=== PATIENT | female | born 1950 | race Two or more races ===

== ENCOUNTER 2024-03-26 10:45 | Inpatient (IN) | payer OTHER, MEDICAID ==
[~2024-03-26] VITALS: Ht 157.5 cm; Wt 94.5 kg
--- NOTE | 2024-03-26 10:55 | ED.PDOC ---
History of Present Illness HPI Comments 73 year old female VINH presents to the ED with chief complaint of generalized weakness. Patient reports that she has been experiencing generalized weakness for the past 2-3 days, feeling like her legs are giving out. Patient relays that she is normally able to walk on her own, but since symptom onset has felt like she is always going to fall. Patient denies any numbness, dizziness, headache, chest pain, or SOB. Time Seen by MD: 10:52 Reviewed Notes: Nurses Notes, Medications, Allergies Allergies: Coded Allergies: NO KNOWN ALLERGIES (Unverified , 03/26/24) Information Source: Patient, Emergency Med Personnel Mode of Arrival: EMS Severity: Moderate Timing: Days Duration: Since onset Prehospital treatment: None Past Medical History PAST MEDICAL HISTORY: DM, HTN Surgical History: Cholecystectomy Surgical History (Other): Rt leg surgery TECHNICIAN PREVENTATIVE MEDICINE History: Denies all TECHNICIAN PREVENTATIVE MEDICINE Hx Family History Family History: Reviewed,noncontributory to illness Social History Smoker: Non-Smoker Alcohol: Denies ETOH Use Drugs: Denies Drug Use Lives In: Home Constitutional: reports: weakness; denies: chills, diaphoresis, fatigue, fever, malaise, sweats, others EENTM: denies: blurred vision, double vision, ear bleeding, ear discharge, ear drainage, ear pain, ear ringing, eye pain, eye redness, hearing loss, mouth pain, mouth swelling, nasal discharge, nose bleeding, nose congestion, nose pain, photophobia, tearing, throat pain, throat swelling, voice changes, others Respiratory: denies: cough, hemoptysis, orthopnea, SOB at rest, shortness of breath, SOB with excertion, stridor, wheezing, others Cardiovascular: denies: chest pain, dizzy spells, diaphoresis, Dyspnea on exertion, edema, irregular heart beat, left arm pain, lightheadedness, palpitations, PND, syncope, others Gastrointestinal: denies: abdomen distended, abdominal pain, blood streaked bowels, constipated, diarrhea, dysphagia, difficulty swallowing, hematemesis, melena, nausea, poor appetite, poor fluid intake, rectal bleeding, rectal pain, vomiting, others Genitourinary: denies: abnormal vagina bleeding, burning, dyspareunia, dysuria, flank pain, frequency, hematuria, incontinence, pain, , vagina discharge, urgency, others Neurological: denies: dizziness, fainting, headache, left sided numbness, left sided weakness, numbness, paresthesia, pre-existing deficit, right sided numbness, right sided weakness, seizure, speech problems, tingling, tremors, weakness, others Musculoskeletal: denies: back pain, gout, joint pain, joint swelling, muscle pain, muscle stiffness, neck pain, others Integumetry: denies: bruises, change in color, change in hair/nails, dryness, laceration, lesions, lumps, rash, wounds, others Allergic/Immunocompromised: denies: Difficulty Healing, Frequent Infections, Hives, Itching, others Hematologic/Lymphatic: denies: anemia, blood clots, easy bleeding, easy bruising, swollen glands, others Endocrine: denies: excessive hunger, excessive sweating, excessive thirst, excessive urination, flushing, intolerance to cold, intolerance to heat, unexplained weight gain, unexplained weight loss, others Psychiatric: denies: anxiety, bipolar disorder, depression, hopeless, panic disorder, schizophrenia, sleepless, suicidal, others All Other Systems: Reviewed and Negative Physical Exam General Appearance: Moderate Distress, Normal HEENT: Normal ENT Inspection, PERRL/EOMI Neck: Full Range of Motion, Non-Tender, Normal, Normal Inspection Respiratory: Chest Non-Tender, Lungs Clear, No Accessory Muscle Use, No Respiratory Distress, Normal Breath Sounds Cardiovascular: No Edema, No JVD, No Murmur, No Gallop, Normal Peripheral Pulses, Regular Rate/Rhythm Breast Exam: Deferred Gastrointestinal: No Organomegaly, Non Tender, No Pulsatile Mass, Normal Bowel Sounds, Soft Genitalia: Deferred Pelvic: Deferred Rectal: Deferred Extremities: No calf tenderness, Normal capillary refill, Normal inspection, Normal range of motion, Non-tender, No pedal edema Musculoskeletal : Apperance: Normal Neurologic: Alert, quality control assistant II-XII nml as Tested, No Motor Deficits, Normal Affect, Normal Mood, No Sensory Deficits Cerebellar Function: NOT DONE Reflexes: NOT DONE Skin: Dry, Normal Color, Warm Peripheral Pulses: 3+ Radial (R), 3+ Radial (L) Lymphatic: No Adenopathy Was a procedure done? Was a procedure done?: No Differential Dx Considerations may include: Autonomic disorder Electrolyte imbalance X-Ray, Labs, Meds, VS Vital Signs Date Time Temp Pulse Resp B/P (MAP) Pulse Ox O2 Delivery O2 Flow Rate FiO2 03/26/24 10:59 98.3 80 16 146/68 (94) 99 03/26/24 10:59 98.3 80 16 144/68 (93) 99 98.3 03/26/24 10:54 65 Lab Test 03/26/24 13:11 03/26/24 11:50 Range/Units Troponin I High Sensitivity < 3 L < 3 L </=34 ng/L White Blood Count 11.3 H 4.4-10.8 10^3/uL Red Blood Count 5.62 H 4.0-5.20 10^6/uL Hemoglobin 16.1 12.2-16.2 g/dL Hematocrit 48.9 H 36.0-46.0 % Mean Corpuscular Volume 87.0 80.0-100.0 fL Mean Corpuscular Hemoglobin 28.6 28.0-32.0 pg Mean Corpuscular Hemoglobin Concent 32.9 32.0-36.0 g/dL Red Cell Distribution Width 14.8 H 11.8-14.3 % Platelet Count 211 140-450 10^3/uL Mean Platelet Volume 10.4 6.9-10.8 fL Neutrophils (%) (Auto) 59.2 37.0-80.0 % Lymphocytes (%) (Auto) 32.6 10.0-50.0 % Monocytes (%) (Auto) 6.8 0.0-12.0 % Eosinophils (%) (Auto) 1.0 0.0-7.0 % Basophils (%) (Auto) 0.4 0.0-2.0 % Neutrophils # (Auto) 6.7 1.6-8.6 10 ^3/uL Lymphocytes # (Auto) 3.7 0.4-5.4 10 ^3/uL Monocytes # (Auto) 0.8 0-1.3 10 ^3/uL Eosinophils # (Auto) 0.1 0-0.8 10 ^3/uL Basophils # (Auto) 0 0-0.2 10 ^3/uL Nucleated Red Blood Cells 0.1 % Sodium Level 141 136-145 mmol/L Potassium Level 4.0 3.5-5.1 mmol/L Chloride Level 105 98-107 mmol/L Carbon Dioxide Level 32 H 20-31 mmol/L Anion Gap 4 L 5-15 Blood Urea Nitrogen 21 9-23 mg/dL Creatinine 1.08 H 0.550-1.02 mg/dL Glomerular Filtration Rate Calc 54 >90 mL/min BUN/Creatinine Ratio 19.4 10.0-20.0 Serum Glucose 114 H 74-106 mg/dL Calcium Level 9.8 8.7-10.4 mg/dL Patient alert. Complaining of dizziness. Able to ambulate. She feels like she will be falling. Blood pressure slightly elevated. Reviewed her previous visit. Explained to the patient about treatment plan. Continue cardiac monitoring. Time of 1ST Reevaluation: 11:52 Reevaluation 1ST: Unchanged Patient Education/Counseling: Diagnosis, Treatment Family Education/Counseling: No Family Present Departure 1 Departure Time of Disposition: 11:08 Impression: Primary Impression: Autonomic disorder Additional Impression: Hypertensive urgency Disposition: ADMITTED INPATIENT Admit to: Med Surg Condition: Guarded Critical Care Note Critical Care Time?: Yes (45 min-critical care time only) Stability Stability form required: No Heart Score Heart Score: Heart Score Response (Comments) Value History N/A 0 EKG N/A 0 Age N/A 0 Risk Factors N/A 0 Troponin N/A 0 Total 0 I personally scribed for DAVID NEIL MD ([email or web address]) on 03/26/24 at 10:55. Electronically submitted by Pavan Shaffer ([email or web address]). DAVID NEIL MD Mar 26, 2024 10:55
[2024-03-26 12:04] LABS: Basophils # (auto) 0 10 ^3/uL (0-0.2); Basophils % (auto) 0.4 % (0.0-2.0); Eosinophils # (auto) 0.1 10 ^3/uL (0-0.8); Hematocrit 48.9 % (36.0-46.0); Hemoglobin 16.1 g/dL (12.2-16.2); Lymphocytes # (auto) 3.7 10 ^3/uL (0.4-5.4); Lymphocytes % (auto) 32.6 % (10.0-50.0); Mean Corpuscular Hemoglobin 28.6 pg (28.0-32.0); Mean Corpuscular Hgb Conc. 32.9 g/dL (32.0-36.0); Monocytes # (auto) 0.8 10 ^3/uL (0-1.3); Monocytes % (auto) 6.8 % (0.0-12.0); Neutrophils # (auto) 6.7 10 ^3/uL (1.6-8.6); Neutrophils % (auto) 59.2 % (37.0-80.0); Nucleated Red Blood Cells % 0.1 %; Platelet Count (auto) 211 10^3/uL (140-450); Red Blood Cells 5.62 10^6/uL (4.0-5.20); Red Cell Distribution Width 14.8 % (11.8-14.3); White Blood Cell 11.3 10^3/uL (4.4-10.8)
[2024-03-26 12:18] LABS: Chloride 105 mmol/L (98-107); Sodium 141 mmol/L (136-145)
[2024-03-26 12:19] LABS: Anion Gap 4 (5-15); Carbon Dioxide 32 mmol/L (20-31)
[2024-03-26 12:20] LABS: Calcium 9.8 mg/dL (8.7-10.4)
[2024-03-26 12:24] LABS: BUN/Creatinine Ratio 19.4 (10.0-20.0); Blood Urea Nitrogen 21 mg/dL (9-23); Glucose 114 mg/dL (74-106)
--- NOTE | 2024-03-26 15:26 | DVH ---
CLINICAL INFORMATION: 73 years old, Female; transient ischemic attack. TECHNIQUE: Axial imaging was obtained through the brain without contrast. Coronal and sagittal refor matted images were obtained, reviewed, and stored. Images were reviewed in brain and bone windows. A ll CT scans at this medical facility are performed using dose modulation techniques as appropriate to a performed exam including the following: Automated exposure control was utilized; adjustment of the MA and/or KV according to patient size; and use of iterative reconstruction technique. CTDIvol = 55.69 mGy DLP = 984.82 mGy-cm COMPARISON: None FINDINGS: There is no acute intracranial hemorrhage or extraaxial fluid collection. No mass effect o r midline shift. Scattered areas of hypoattenuation are seen in the periventricular and subcortical w cecil matter, which are nonspecific but most likely sequelae of small vessel ischemic disease.The vent ricles and sulci are within normal limits in size for age. Basal cisterns are patent. The calvari um is unremarkable. Paranasal sinuses and mastoid air cells are clear. IMPRESSION: 1. No CT evidence of acute intracranial abnormality. 2. Nonacute findings as detailed above.
[2024-03-26] MEDS ORDERED: ONDANSETRON HCL 4 MG/2 ML VIAL IV PRN (16:00)
[2024-03-26] MEDS ORDERED: HYDROcodone-ACET 5/325MG TAB PO PRN ×2 (16:00→16:30)
[2024-03-26] MEDS ORDERED: TEMAZEPAM 15 MG CAP PO PRN (16:00)
[2024-03-26] MEDS ORDERED: NITROGLYCERIN 0.4 MG SL TAB SL PRN ×2 (16:00→16:30)
[2024-03-26] MEDS ORDERED: ACETAMINOPHEN 325 MG TAB PO PRN ×2 (16:00→16:30)
[2024-03-26] MEDS ORDERED: MORPHINE SULFATE INJ 2 MG/ml SYRG IV PRN ×3 (16:00→16:30)
--- NOTE | 2024-03-26 18:01 | DVH ---
PROCEDURE: MRI MRA ANGIO HEAD BRAIN INDICATION: cva 03/26/2024 05:03 PM COMPARISON: None TECHNIQUE: MRA head without intravenous contrast. 3D image postprocessing was performed on a dedicated workstation and images were used for interpretat ion and reporting. FINDINGS: MRA head: Limited by significant motion There is preserved flow within the bilateral distal internal carotid arteries. There is preserved flow within the anterior and middle cerebral arteries. There is preserved flow within the vertebral arteries, basilar artery, cerebellar arteries and clinical secretary ior cerebral arteries. There is no evidence of hemodynamically significant intracranial stenosis, proximal occlusion or aneu rysm. No abnormal venous signal is seen. IMPRESSION: 1. Limited by motion. Intracranial arteries appear patent. No definite stenosis or occlusion is seen. HS:Y
--- NOTE | 2024-03-26 18:03 | DVH ---
PROCEDURE: MRI BRAIN HEAD WO CONTRAST INDICATION: Stroke EXAM DATE: 03/26/2024 05:14 PM COMPARISON: CT HEAD WITHOUT CONTRAST on DOS: 03/26/24 TECHNIQUE: MRI brain without intravenous contrast. FINDINGS: Diffusion weighted images of the brain demonstrate no evidence of acute infarction. There is no evid ence of intracranial hemorrhage, extra-axial collection, mass effect, midline shift, herniation or hy drocephalus. The ventricles, sulci, and cisterns appear otherwise age appropriate. There are moderate to advanced changes of chronic microvascular ischemic disease. There are no signal abnormal ities on the susceptibility weighted sequences. The major vascular flow voids are present. The vi sualized paranasal sinuses and mastoid air cells are clear. The surrounding soft tissues and osseous structures are otherwise unremarkable. IMPRESSION: 1. No evidence of acute infarction, intracranial hemorrhage, mass lesion or hydrocephalus. Moderate t o advanced changes of chronic microvascular ischemic disease. HS:Y
--- NOTE | 2024-03-26 18:11 | DVH ---
PROCEDURE: MRI MRA ANGIO OF NECK INDICATION: CVA 03/26/2024 05:29 PM COMPARISON: MRI MRA ANGIO HEAD BRAIN on DOS: 03/26/24 TECHNIQUE: MRA neck without intravenous contrast. 3D image postprocessing was performed on a dedicated workstation and images were used for interpretat ion and reporting. FINDINGS: The visualized thoracic aortic arch and proximal great vessels are unremarkable. There is no evidence of hemodynamically significant stenosis involving the bilateral common and inter nal carotid arteries. The cervical vertebral arteries are patent. There is no evidence of dissection. IMPRESSION: 1. No evidence of hemodynamically significant carotid stenosis or dissection. HS:Y
[2024-03-26 18:24] VITALS: PULSE 90; RESP 18; O2SAT 94
[2024-03-26 20:17] LABS: Urine Bacteria None Seen /hpf (None Seen)
[2024-03-26 20:35] LABS: Urine Blood Negative /uL (Negative); Urine Clarity Clear (Clear); Urine Color Light-Yellow (Yellow); Urine Protein, UAD Negative (Negative); Urine Specific Gravity 1.022 (1.001-1.035); Urine Urobilinogen 2 mg/dL (Negative); Urine WBC 1 /hpf (0 - 5); Urine pH 5.5 (5.0-9.0)
[2024-03-26 20:59] VITALS: BP 147/64; PULSE 76; RESP 17; TEMP 98.2; O2SAT 95
[2024-03-26] MEDS: ASCORBIC ACID 500 MG TAB PO SCH (21:18)
[2024-03-26] MEDS: SODIUM CHLORIDE 0.9% 1,000 ML IV SCH (21:20)
[2024-03-26 22:10] VITALS: RESP 17; O2SAT 95
[2024-03-26] MEDS ORDERED: ATOR-507 PO (22:34)
[2024-03-26] MEDS ORDERED: ATOR10TA PO (22:34)
[2024-03-26] MEDS ORDERED: HYDR50TA47 PO (22:34)
[2024-03-26] MEDS ORDERED: METO1TAB77 PO (22:34)
[2024-03-26] MEDS ORDERED: LOSA-534 PO (22:34)
[2024-03-26] MEDS ORDERED: HYDR25TA5 GT (22:34)
[2024-03-26] MEDS ORDERED: PRAV20TA3 PO (22:34)
[2024-03-27] VITALS (7 sets, daily range): BP systolic 138–152; BP diastolic 53–110; PULSE 60–84; RESP 16–18; TEMP 97.8–99.2; O2SAT 93–100
--- NOTE | 2024-03-27 01:11 | DVHHP2 ---
MARYJO KARIMI BOTTLE DEALER 03/27/24 0111: History of Present Illness Reason for Visit: Generalized weakness History of Present Illness 73-year-old female past medical history of hypertension, DM, presents with complaints with generalized weakness times two days. Patient states she is normally able to ambulate independently. However, the previous days she has felt Heaviness in her legs. No complaints of fevers, chills, unilateral deficits, visual disturbance, headaches, Shortness of breath, chest pain, palpitations, Nausea, vomiting. Cardiovascular: HTN Endocrine: Diabetes Smoke: No ALCOHOL: none Drugs: None Lives: with Family Review of Systems Constitutional: Yes: Weakness; No: Fever, Chills, Sweats, Malaise, Other Eyes: No: Pain, Vision change, Conjunctivae inflammation, Eyelid inflammation, Other, Redness ENT: No: Ear pain, Ear discharge, Nose pain, Nose discharge, Nose congestion, Mouth pain, Mouth swelling, Throat pain, Throat swelling, Other Respiratory: No: Cough, Dry, Shortness of breath, SOB with excertion, Wheezing, Hemoptysis, Pleuritic Pain, Sputum, Wheezing, Other Cardiovascular: No: Chest Pain, Palpitations, Orthopnea, Paroxysmal Noc. Dyspnea, Edema, Lt Headedness, Other Gastrointestinal: No: Nausea, Vomiting, Abdominal Pain, Diarrhea, Constipation, Melena, Hematochezia, Other Genitourinary: No Dysuria, No Frequency, No Incontinence, No Hematuria, No Retention, No Other Musculoskeletal: No: other, neck pain, shoulder pain, arm pain, back pain, hand pain, leg pain, foot pain Skin: No: Rash, Lesions, Jaundice, Bruising, Other Neurological: No: Weakness, Numbness, Incoordination, Change in speech, Confusion, Seizures, Other Allergies: Coded Allergies: Acetaminophen (Unverified Allergy, Unknown, 03/27/24) Hydrocodone (Unverified Allergy, Unknown, 03/27/24) Medications Current Medications Medications Dose Ordered Sig/Debbie Route Start Time Stop Time Status Last Admin Dose Admin Sodium Chloride 1,000 ml @ 60 mls/hr [id number] IV 03/26/24 16:00 03/26/24 21:20 60 MLS/HR Temazepam 15 mg QHSP PRN PO 03/26/24 16:00 Zinc Sulfate 220 mg DAILY PO 03/27/24 10:00 Ascorbic Acid 500 mg BID PO 03/26/24 22:00 03/26/24 21:18 500 MG Acetaminophen/ Hydrocodone Bitart 1 tab Q4HP PRN PO 03/26/24 16:30 Ondansetron HCl 4 mg Q4HP PRN IV 03/26/24 16:30 Enoxaparin Sodium 40 mg DAILY SC 03/27/24 10:00 Acetaminophen 650 mg Q6HP PRN PO 03/26/24 16:30 Morphine Sulfate 2 mg Q4HPRN PRN IV 03/26/24 16:30 Nitroglycerin 0.4 mg Q5MINP PRN SL 03/26/24 16:30 Morphine Sulfate 2 mg Q30M PRN IV 03/26/24 16:30 Exam Vital Signs Vital Signs Date Time Temp Pulse Resp B/P (MAP) Pulse Ox O2 Delivery O2 Flow Rate FiO2 03/26/24 22:10 17 95 Room Air* 0 21 03/26/24 20:59 98.2 76 147/64 (91) 98.2 General Appearance: Alert, Oriented X3, Cooperative, No acute distress HEENT: Atraumatic, PERRLA, EOMI Respiratory: Clear to auscultation, Normal air movement Cardiovascular: Regular rate, Normal S1, Normal S2 Abdominal: Normal bowel sounds, Soft, No tenderness Extremities: No clubbing, No cyanosis, No edema Skin: No rashes, No breakdown Neuro: Normal speech Psych/Mental Status: Mental status NL, Mood NL Labs/Xrays Labs Test 03/26/24 20:15 03/26/24 13:11 03/26/24 11:50 Range/Units Urine Color Light-yellow Yellow Urine Clarity Clear Clear Urine pH 5.5 5.0-9.0 Urine Specific [place] 1.022 1.001-1.035 Urine Protein Negative Negative Urine Ketones Negative Negative Urine Blood Negative Negative /uL Urine Nitrite Negative Negative Urine Bilirubin Negative Negative Urine Urobilinogen 2 H Negative mg/dL Urine Leukocyte Esterase Negative Negative /uL Urine RBC <1 0 - 4 /hpf Urine WBC 1 0 - 5 /hpf Urine Squamous Epithelial Cells Few <5 /hpf Urine Bacteria None seen None Seen /hpf Urine Glucose Normal Normal mg/dL Troponin I High Sensitivity < 3 L </=34 ng/L White Blood Count 11.3 H 4.4-10.8 10^3/uL Red Blood Count 5.62 H 4.0-5.20 10^6/uL Hemoglobin 16.1 12.2-16.2 g/dL Hematocrit 48.9 H 36.0-46.0 % Mean Corpuscular Volume 87.0 80.0-100.0 fL Mean Corpuscular Hemoglobin 28.6 28.0-32.0 pg Mean Corpuscular Hemoglobin Concent 32.9 32.0-36.0 g/dL Red Cell Distribution Width 14.8 H 11.8-14.3 % Platelet Count 211 140-450 10^3/uL Mean Platelet Volume 10.4 6.9-10.8 fL Neutrophils (%) (Auto) 59.2 37.0-80.0 % Lymphocytes (%) (Auto) 32.6 10.0-50.0 % Monocytes (%) (Auto) 6.8 0.0-12.0 % Eosinophils (%) (Auto) 1.0 0.0-7.0 % Basophils (%) (Auto) 0.4 0.0-2.0 % Neutrophils # (Auto) 6.7 1.6-8.6 10 ^3/uL Lymphocytes # (Auto) 3.7 0.4-5.4 10 ^3/uL Monocytes # (Auto) 0.8 0-1.3 10 ^3/uL Eosinophils # (Auto) 0.1 0-0.8 10 ^3/uL Basophils # (Auto) 0 0-0.2 10 ^3/uL Nucleated Red Blood Cells 0.1 % Sodium Level 141 136-145 mmol/L Potassium Level 4.0 3.5-5.1 mmol/L Chloride Level 105 98-107 mmol/L Carbon Dioxide Level 32 H 20-31 mmol/L Anion Gap 4 L 5-15 Blood Urea Nitrogen 21 9-23 mg/dL Creatinine 1.08 H 0.550-1.02 mg/dL Glomerular Filtration Rate Calc 54 >90 mL/min BUN/Creatinine Ratio 19.4 10.0-20.0 Serum Glucose 114 H 74-106 mg/dL Calcium Level 9.8 8.7-10.4 mg/dL Assessment/Plan Assessment/Plan Generalized weakness TIA r/o Hypertension T2DM Plan Admit telemetry Mri brain Echocardiogram Continue home medications As needed anti-hypertensive for optimal BP management Blood glucose checks ACHS with regular insulin sliding scale coverage for optimal glycemic management. IVF Orthostatic Vital signs Physical therapy evaluation Social service consult home safety evaluation GI Prophylaxis pepcid / DVT prophylaxis Lovenox Plan discussed with: Patient Date of Service: Mar 27, 2024 Billing Provider: RENETTA BAH MD Common Visit Codes: NOT BILLABLE RENETTA BAH MD 03/27/24 1421: Review of Systems Allergies: Coded Allergies: Acetaminophen (Unverified Allergy, Unknown, 03/27/24) Hydrocodone (Unverified Allergy, Unknown, 03/27/24) Additional Comments Additional Comments Additional Comments Patient was seen and evaluated by me. I agree with the assessment and plan as outlined by my nurse practitioner. MARYJO KARIMI NP Mar 27, 2024 01:11 RENETTA BAH MD Mar 27, 2024 14:21
[2024-03-27 07:05] LABS: Basophils # (auto) 0 10 ^3/uL (0-0.2); Basophils % (auto) 0.3 % (0.0-2.0); Eosinophils # (auto) 0.1 10 ^3/uL (0-0.8); Eosinophils % (auto) 1.3 % (0.0-7.0); Hematocrit 45.9 % (36.0-46.0); Lymphocytes # (auto) 3.4 10 ^3/uL (0.4-5.4); Lymphocytes % (auto) 32.2 % (10.0-50.0); Mean Corpuscular Hemoglobin 28.7 pg (28.0-32.0); Mean Corpuscular Hgb Conc. 32.7 g/dL (32.0-36.0); Mean Corpuscular Volume 87.7 fL (80.0-100.0); Monocytes # (auto) 0.8 10 ^3/uL (0-1.3); Monocytes % (auto) 7.7 % (0.0-12.0); Neutrophils # (auto) 6.1 10 ^3/uL (1.6-8.6); Neutrophils % (auto) 58.5 % (37.0-80.0); Platelet Count (auto) 219 10^3/uL (140-450); Red Blood Cells 5.23 10^6/uL (4.0-5.20); Red Cell Distribution Width 14.4 % (11.8-14.3); White Blood Cell 10.4 10^3/uL (4.4-10.8)
[2024-03-27 07:25] LABS: Alanine Aminotransferase 12 U/L (7-40); Alkaline Phosphatase 129 U/L (46-116); Anion Gap 5 (5-15); Calcium 9.7 mg/dL (8.7-10.4); Carbon Dioxide 31 mmol/L (20-31); Chloride 107 mmol/L (98-107); Potassium 4.4 mmol/L (3.5-5.1); Sodium 143 mmol/L (136-145)
[2024-03-27 07:26] LABS: BUN/Creatinine Ratio 22.1 (10.0-20.0); Blood Urea Nitrogen 23 mg/dL (9-23); Glucose 127 mg/dL (74-106)
[2024-03-27 07:27] LABS: Albumin 3.9 g/dL (3.2-4.8); Aspartate Aminotransferase 12 U/L (13-40)
[2024-03-27 07:28] LABS: Bilirubin, Total 0.7 mg/dL (0.2-1.0); Total Protein 7.1 g/dL (5.7-8.2)
[2024-03-27] MEDS: ENOXAPARIN SOD 40 MG/0.4 ML SYRINGE SC SCH (10:22)
[2024-03-27] MEDS: ZINC SULFATE 220mg CAP or TAB PO SCH (10:22)
[2024-03-27] MEDS: ONDANSETRON HCL 4 MG/2 ML VIAL IV PRN (10:22)
--- NOTE | 2024-03-27 10:44 | ECG ---
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
--- NOTE | 2024-03-27 13:24 | DVHSR ---
APPROVED REPORT EXAM: Two-dimensional and M-mode echocardiogram with Doppler and color Doppler. Blood Pressure: 152/110 mmHg INDICATION Dizziness and Vertigo RISK FACTORS Height: 62, Weight: 208 DIMENSIONS LVDd3.9 (3.8-5.7cm)LA (2D)3.2 (1.9-4.0cm)Aortic Root3.7 (2.0-3.7cm) LVDs2.9 (2.5-4.0cm)LA (MM) (1.9-4.0cm)Aortic Cusp Exc1.5 (1.5-2.0cm) EF (%) 52.0 (55-70%)Rt. Atrium3.3 (1.9-4.0cm)Asc. Aorta3.1 cm IVSd1.2 (0.7-1.1cm)RV (D) (1.8-2.4cm) PWd1.2 (0.7-1.1cm) Mitral Valve MitralMitral Stenosis E wave0.73m/sMV Mean GR.mmHg A wave1.25m/sMV Peak GR.mmHg E/A ratio0.62D MVAcm2 DECEL [id number] 1/2 [id number] IVRTmsDop MVA2.66cm2 Aortic Valve Aortic ValveAortic Stenosis V11.17m/Jocelin Mean GR.7mmHg V21.99m/Jocelin Peak GR.16mmHg LVOT Diameter2.1 (1.8-2.4cm)Doppler AVA2.04cm2 Pulmonic Valve V20.94m/s Other Information Technically limited study due to body habitus. Conclusion Normal left ventricular size and dimension. Normal left ventricular systolic function estimated ejec tion fraction 55%. There is a grade 1 diastolic dysfunction. Normal right ventricular size and dimension. Normal right ventricular systolic function. Normal biatrial size and dimension. The aortic valve is thickened and mildly calcific. There is mild aortic valve sclerosis. Normal mitral valve structure and function. Normal tricuspid valve structure and function. The pulmonary valve is grossly normal. No pericardial effusion.
--- NOTE | 2024-03-27 14:25 | DVHDS2 ---
Discharge Summary Date of Admission Mar 26, 2024 at 15:55 Date of Discharge: Mar 27, 2024 Labs/Diagnostic Data: Laboratory Results Test 03/27/24 05:40 03/26/24 20:15 03/26/24 13:11 White Blood Count 10.4 10^3/uL (4.4-10.8) Red Blood Count 5.23 10^6/uL (4.0-5.20) Hemoglobin 15.0 g/dL (12.2-16.2) Hematocrit 45.9 % (36.0-46.0) Mean Corpuscular Volume 87.7 fL (80.0-100.0) Mean Corpuscular Hemoglobin 28.7 pg (28.0-32.0) Mean Corpuscular Hemoglobin Concent 32.7 g/dL (32.0-36.0) Red Cell Distribution Width 14.4 % (11.8-14.3) Platelet Count 219 10^3/uL (140-450) Mean Platelet Volume 10.8 fL (6.9-10.8) Neutrophils (%) (Auto) 58.5 % (37.0-80.0) Lymphocytes (%) (Auto) 32.2 % (10.0-50.0) Monocytes (%) (Auto) 7.7 % (0.0-12.0) Eosinophils (%) (Auto) 1.3 % (0.0-7.0) Basophils (%) (Auto) 0.3 % (0.0-2.0) Neutrophils # (Auto) 6.1 10 ^3/uL (1.6-8.6) Lymphocytes # (Auto) 3.4 10 ^3/uL (0.4-5.4) Monocytes # (Auto) 0.8 10 ^3/uL (0-1.3) Eosinophils # (Auto) 0.1 10 ^3/uL (0-0.8) Basophils # (Auto) 0 10 ^3/uL (0-0.2) Nucleated Red Blood Cells 0.0 % Sodium Level 143 mmol/L (136-145) Potassium Level 4.4 mmol/L (3.5-5.1) Chloride Level 107 mmol/L (98-107) Carbon Dioxide Level 31 mmol/L (20-31) Anion Gap 5 (5-15) Blood Urea Nitrogen 23 mg/dL (9-23) Creatinine 1.04 mg/dL (0.550-1.02) Glomerular Filtration Rate Calc 56 mL/min (>90) BUN/Creatinine Ratio 22.1 (10.0-20.0) Serum Glucose 127 mg/dL (74-106) Calcium Level 9.7 mg/dL (8.7-10.4) Total Bilirubin 0.7 mg/dL (0.2-1.0) Aspartate Amino Transferase (AST) 12 U/L (13-40) Alanine Aminotransferase (ALT) 12 U/L (7-40) Alkaline Phosphatase 129 U/L (46-116) Total Protein 7.1 g/dL (5.7-8.2) Albumin 3.9 g/dL (3.2-4.8) Urine Color Light-yellow (Yellow) Urine Clarity Clear (Clear) Urine pH 5.5 (5.0-9.0) Urine Specific [place] 1.022 (1.001-1.035) Urine Protein Negative (Negative) Urine Ketones Negative (Negative) Urine Blood Negative /uL (Negative) Urine Nitrite Negative (Negative) Urine Bilirubin Negative (Negative) Urine Urobilinogen 2 mg/dL (Negative) Urine Leukocyte Esterase Negative /uL (Negative) Urine RBC <1 /hpf (0 - 4) Urine WBC 1 /hpf (0 - 5) Urine Squamous Epithelial Cells Few /hpf (<5) Urine Bacteria None seen /hpf (None Seen) Urine Glucose Normal mg/dL (Normal) Troponin I High Sensitivity < 3 ng/L (</=34) Other Laboratory Tests 03/27/24 05:40 Brief Hx & Hospital Course: 73-year-old female with a known history of hypertension, dyslipidemia initially presented to the hospital with generalized weakness and as her legs were giving out. Patient denies any focal deficit denies any facial droop or slurred speech. Patient denies any previous episode of similar kind. Eventually patient was admitted for ruling out acute stroke. Patient underwent brain MRI and MRA which shows no evidence of any acute infarct. Patient is currently denies any symptoms and requesting to go home. Patient was hyperglycemic we will check hemoglobin A1c and she needs to follow up with a hemoglobin A1c as an outpatient with the PCP. Patient is currently understand verbalized understanding and agreeable to plan. Home health home safety evaluation. Condition at Discharge: Stable Final Diagnosis/Problems List 1. Generalized weakness, acute CVA has been ruled out 2. Hypertension 3. Hyperglycemia, rule out diabetes mellitus type 2 Discharge Disposition: Home with Health Services SNF Discharge Will this Physician continue t: No Discharge Instruct/Medications Diet: Cardiac 2g Na,low cholest Activity: No Restrictions, As Tolerated Follow Up/Referral: Follow up with the PCP in 1-2 weeks with lab test hemoglobin A1c. Medications: Resume home medications Discharge Statement: "Patient was advised to return to the ER or call 911 if any headaches, dizziness, shortness of breath, chest pain, abdominal pain, bleeding, fevers, or worsening of medical condition. Patient was counseled about treatment plan, medications, possible side effects, patientverbalized understanding. All questions were answered to the best of my ability. This discharge took greater then 30 minutes in planning, reviewing documentation, counseling the patient, and discussing with other team members." ASSESSMENT ASSESSMENT Assessment 1. Generalized weakness, acute CVA has been ruled out 2. Hypertension 3. Hyperglycemia, rule out diabetes mellitus type 2 Date of Service: Mar 27, 2024 Billing Provider: RENETTA BAH MD Common Visit Codes: NOT BILLABLE RENETTA BAH MD Mar 27, 2024 14:25
== END 2024-03-27 18:00 | disposition home health service (06) | DRG 305 ==
LOC: ER 10:45 → EDBD 10:45 → TELE 15:55 → TELE-CENTR 20:59
PROVIDERS: ADMIT Internal Medicine; ATTEND Internal Medicine
DX: I16.0 Hypertensive urgency (principal); G90.89 Other disorders of autonomic nervous system; I10 Essential (primary) hypertension; E11.65 Type 2 diabetes mellitus with hyperglycemia; E78.5 Hyperlipidemia, unspecified; Z90.49 Acquired absence of other specified parts of digestive tract; Z79.4 Long term (current) use of insulin; Z79.899 Other long term (current) drug therapy
CPT/HCPCS: 36415; 70450; 70545; 70547; 70551; 80048; 80053; 81001; 83036; 84484; 85025; 93005; 93306; 97163; 99291; G0378; J2405